=== PATIENT | male | born 1960 | race Hispanic/Latino ===

== ENCOUNTER 2021-10-15 22:55 | Emergency (ER) | payer OTHER ==
[~2021-10-15] VITALS: Ht 180.3 cm; Wt 93.0 kg
[~2021-10-15 22:55] MED LIST: CEFTIN250 MG/5 M PO; HYDROCHLOROTHIA25 MG PO; VIBRAMYCIN100 MG PO
[2021-10-15] MEDS ORDERED: SODIUM CHLORIDE 0.9% 1000ML 1,000 ML IV STA (23:27)
[2021-10-15] MEDS ORDERED: FAMOTIDINE 20 MG/2 ML VIAL IV ONE ×2 (23:30→23:55)
[2021-10-15] MEDS ORDERED: KETOROLAC TROMETHAMINE 30 MG/ML VIAL IV ONE (23:30)
[2021-10-15] MEDS ORDERED: ONDANSETRON HCL INJ 2MG/ML 2ML 2 MG/ML VIAL IV ONE (23:30)
[2021-10-15] MEDS ORDERED: ONDANSETRON HCL INJ 2MG/ML 2ML 2 MG/ML VIAL ONE (23:55)
[2021-10-15] MEDS ORDERED: SODIUM CHLORIDE 0.9% 1000ML 1,000 ML ONE (23:55)
[2021-10-15] MEDS ORDERED: KETOROLAC TROMETHAMINE 30 MG/ML VIAL ONE (23:55)
[2021-10-16] MEDS ORDERED: IOPAMIDOL 370 MG/ML 100 ML INFUS..BTL INJ ONE (00:07)
[2021-10-16] MEDS ORDERED: FAMOTIDINE20 MG PO (01:10)
[2021-10-16] MEDS ORDERED: ONDANSETRON ODT4 MG PO (01:10)
[2021-10-16] MEDS ORDERED: MAALOX MAXIMUM355 ML PO (01:10)
== END 2021-10-16 01:35 | disposition home or self-care (01) ==
LOC: FSED 22:59
DX: R11.2 Nausea with vomiting, unspecified (principal); K52.9 Noninfective gastroenteritis and colitis, unspecified; R10.30 Lower abdominal pain, unspecified; K29.70 Gastritis, unspecified, without bleeding
CPT/HCPCS: 74177; 80048; 80076; 85025; 99284; J1885; J2405; J7030; Q9967